=== PATIENT | female | born 1950 | race Caucasian/White ===

== ENCOUNTER → 2017-04-13 | Outpatient (CLI) | payer MEDICARE ==
--- NOTE | 2017-04-14 22:17 | Diagnostic Imaging Report ---
Bilateral screening mammogram 2D views with tomosynthesis The current study was also evaluated with a Computer Aided Detection (CAD) system. Indication: Screening. No current complaints stated on the questionnaire. COMPARISON: No prior studies are available for comparison. FINDINGS: The breasts are composed of scattered fibroglandular densities. Punctate calcifications are seen. No mass, architectural distortion or suspicious calcifications. IMPRESSION: No mammographic evidence of malignancy. Annual screening mammograms recommended. ACR BI-RADS Category 2: Benign findings. Result letter will be mailed to the patient. Note: At least 10% of breast cancer is not imaged by mammography. Dictated by: Dictated on workstation # [id number]
== END ==
LOC: RAD 10:59
PROVIDERS: ATTEND Internal Medicine
DX: Z12.31 Encounter for screening mammogram for malignant neoplasm of breast (principal)
CPT/HCPCS: 77067

== ENCOUNTER → 2018-09-16 | Outpatient (CLI) | payer MEDICARE ==
[~2018-09-16] MED LIST: ADAL40PE INJ; AMLO5TAB9 PO; ASPI-999 PO; ATOR20TA66 PO; METH2.5T PO
--- NOTE | 2018-09-16 18:59 | Diagnostic Imaging Report ---
INDICATION: Screening. At this time there are no current complaints. EXAMINATION: Bilateral digital screening mammogram with CAD. 3D tomographic images were obtained and reviewed. The current study was also evaluated with a Computer Aided Detection (CAD) system. COMPARISON: This study was compared with the prior exam of 04/13/2017. FINDINGS: There are scattered fibroglandular densities in both breasts which could obscure a lesion. Overall, there does not appear to have been any significant change when compared to the prior exam. No primary or secondary sign of malignancy is noted. In the interval since the prior exam, a loop recorder device has been inserted on the left. IMPRESSION: There is no radiographic evidence for malignancy. ACR BI-RADS Category 1: Negative. Result letter will be mailed to the patient. Note: At least 10% of breast cancer is not imaged by mammography. Dictated by: Dictated on workstation # [id number]
== END ==
LOC: RAD 07:06
PROVIDERS: ATTEND Internal Medicine
DX: Z12.31 Encounter for screening mammogram for malignant neoplasm of breast (principal)
CPT/HCPCS: 77067

== ENCOUNTER → 2019-12-19 | Outpatient (CLI) | payer MEDICARE ==
[~2019-12-19] MED LIST changes: +CATHETER FLUSH 10 ML SYR IV PRN; +REGADENOSON 0.4 MG/5 ML SYR (LEXISCAN) IV ONE
[2019-12-19 09:50] VITALS: BP 160/75
--- NOTE | 2019-12-19 15:53 | Cardiology Stress Test Report ---
Stress Test Report Date of Procedure/Referring: Date of Procedure: Dec 19, 2019 Anita Garcia Admitting Physician Viviana Perez DO Indications: Atrial tachycardia Baseline Heart Rate: 101 Baseline Blood Pressure: Blood Pressure Systolic: 160 Blood Pressure Diastolic: 75 Baseline Vitals Vital Signs Date Time Temp Pulse Resp B/P (MAP) Pulse Ox O2 Delivery O2 Flow Rate FiO2 12/19/19 09:50 105 18 160/75 (103) 99 Room Air Baseline EKG: Baseline EKG: sinus tachycardia Summary After explaining the procedure to the patient, she signed a consent and then brought to the stress nuclear laboratory. Patient received 0.4 mg Lexiscan for stress test, ECG, heart rate and blood pressure were monitored continuously. Resting and stress dose of radio tracer were injected, imaging was acquired and reviewed in short axis, horizontal long axis and vertical long axis views. TID: 1.01 SSS: 2 SDS: 2 EF: 61 1. Patient tolerated Lexiscan well 2. Baseline sinus tachycardia persisted during test 3. Breast attenuation with no significant ischemia or infarction on SPECT images 4. Normal LV size with EF 61 percent MUSA ALEXIS MD Dec 19, 2019 15:53
== END ==
LOC: CARD 07:26
PROVIDERS: ATTEND Physician Assistant
DX: I47.1 Supraventricular tachycardia (principal); I10 Essential (primary) hypertension; I63.9 Cerebral infarction, unspecified; E78.2 Mixed hyperlipidemia
CPT/HCPCS: 78452; 93017; A9502

== ENCOUNTER → 2020-03-16 | Outpatient (CLI) | payer MEDICARE ==
[~2020-03-16] MED LIST changes: +AMLO-250 PO; -AMLO5TAB9 PO; -CATHETER FLUSH 10 ML SYR IV PRN; -REGADENOSON 0.4 MG/5 ML SYR (LEXISCAN) IV ONE
--- NOTE | 2020-03-16 09:34 | Diagnostic Imaging Report ---
Digital mammogram. Bilateral screening This study was compared to the prior exam of 09/16/2018 and 04/13/2017. At this time there are no current complaints. The current study was also evaluated with a Computer Aided Detection (CAD) system. FINDINGS: The fibroglandular tissue in both breasts is dense. This does limit the sensitivity of this exam. Overall, there does not appear to have been any significant change when compared to the prior study. No primary or secondary sign of malignancy is noted. Loop recorder device overlying the left breast seen previously is again evident IMPRESSION: There is no radiographic evidence for malignancy. ACR BI-RADS Category 1: Negative. Result letter will be mailed to the patient. Note: At least 10% of breast cancer is not imaged by mammography. Dictated by: Dictated on workstation # [id number]
== END ==
LOC: RAD 07:16
PROVIDERS: ATTEND Internal Medicine
DX: Z12.31 Encounter for screening mammogram for malignant neoplasm of breast (principal)
CPT/HCPCS: 77063; 77067

== ENCOUNTER 2020-11-23 09:10 | Outpatient (CLI) | payer MEDICARE ==
[~2020-11-23] VITALS: Ht 160 cm; Wt 58.1 kg
[2020-11-23 09:00] VITALS: BP 122/54
[2020-11-23] MEDS ORDERED: EPINEPHrine INJECTION 1 MG/ML AMP IM PRN (09:45)
[2020-11-23] MEDS ORDERED: diphenhydrAMINE 50 MG/ML INJ (BENADRYL) IV PRN (09:45)
[2020-11-23] MEDS ORDERED: CASIRIVIMAB/IMDEVIMAB 1,200 MG in NS (IVPB) 250 ML IV ONE (09:45)
[2020-11-23 10:52] VITALS: BP 121/45
== END 2020-11-23 11:47 ==
LOC: INFUSION 09:10
PROVIDERS: ATTEND Internal Medicine
DX: Z23 Encounter for immunization (principal); U07.1 COVID-19

== ENCOUNTER → 2021-03-18 | Outpatient (CLI) | payer MEDICARE ==
--- NOTE | 2021-03-18 11:50 | Diagnostic Imaging Report ---
INDICATION: Routine screening. COMPARISON: 03/16/2020 and 09/16/2018. TECHNIQUE: 2D and 3D bilateral screening mammography was performed with CAD. FINDINGS: Scattered fibroglandular densities are identified bilaterally. A cardiac device overlies the medial left breast. The overall parenchymal pattern appears stable. No mass or malignant-appearing microcalcifications are seen. Occasional benign calcifications are noted. The axillae are unremarkable. IMPRESSION: No mammographic features suspicious for malignancy are identified. ACR BI-RADS Category 2: Benign findings. Result letter will be mailed to the patient. Note: At least 10% of breast cancer is not imaged by mammography. Dictated by: Dictated on workstation # [id number]
== END ==
LOC: RAD 07:35
PROVIDERS: ATTEND Internal Medicine
DX: Z12.31 Encounter for screening mammogram for malignant neoplasm of breast (principal)
CPT/HCPCS: 77063; 77067

== ENCOUNTER 2022-03-12 05:37 | Outpatient (CLI) | payer MEDICARE ==
[~2022-03-12] VITALS: Ht 160 cm; Wt 59.0 kg
[2022-03-13] MEDS ORDERED: MTP25TSR PO (08:36)
[2022-03-13] MEDS ORDERED: CYAN-41 PO (08:36)
[2022-03-13] MEDS ORDERED: FOLI1TAB33 PO (08:36)
[2022-03-13] MEDS ORDERED: MULT-593 PO (08:36)
== END 2022-03-13 08:39 | disposition home or self-care (01) ==
LOC: PREOP 05:37
PROVIDERS: ATTEND Surgery
DX: Z01.818 Encounter for other preprocedural examination (principal)

== ENCOUNTER 2022-03-25 10:00 | Day surgery (SDC) | payer MEDICARE ==
[~2022-03-25] VITALS: Ht 160 cm; Wt 59.0 kg
[~2022-03-25 10:00] MED LIST changes: +CYAN-41 PO; +FOLI1TAB33 PO; +MTP25TSR PO; +MULT-593 PO
[2022-03-25] MEDS ORDERED: LACTATED RINGERS 1,000 ML IV STA (10:03)
[2022-03-25 10:21] VITALS: BP 154/89
--- NOTE | 2022-03-25 13:11 | Progress Note-Pre Operative ---
Pre-Operative Progress Note Date of Available H&P: Feb 24, 2022 Date H&P Reviewed: Mar 25, 2022 Time H&P Reviewed: 13:11 History & Physical: H&P Reviewed, Patient Examed, No changes noted Pre-Operative Diagnosis: screening colonoscopy CARMEN BROWN DO Mar 25, 2022 13:11
[2022-03-25] MEDS ORDERED: PROPOFOL INJECTION 50 ML IV ONE (13:12)
[2022-03-25] MEDS ORDERED: MIDAZOLAM 2 MG/2 ML (VERSED) VIAL ONE (13:12)
[2022-03-25 13:40] VITALS: BP 99/56
--- NOTE | 2022-03-25 13:43 | Discharge Inst-Simple/Standard ---
Discharge Inst-Standard Patient Instructions/Follow Up Plan of Care/Instructions/FU: Follow up in [address] Emerson Activity as Tolerated: Yes Discharge Diet: Regular Diet CARMEN EMERSON DO Mar 25, 2022 13:43
[2022-03-25 13:45] VITALS: BP 102/57
[2022-03-25 13:50] VITALS: BP 105/57
[2022-03-25 14:05] VITALS: BP 128/88
[2022-03-25 14:12] VITALS: BP 128/88
--- NOTE | 2022-03-25 14:41 | Anesthesia-General Post-Op ---
MAC Patient Condition Mental Status/LOC: Same as Preop Cardiovascular: Satisfactory Nausea/Vomiting: Absent Respiratory: Satisfactory Pain: Controlled Complications: Absent Post Op Complications Complications None Follow Up Care/Instructions Patient Instructions None needed. Anesthesiology Discharge Order Discharge Order Patient is doing well, no complaints, stable vital signs, no apparent adverse anesthesia problems. No complications reported per nursing. ROLF PRINGLE CRNA Mar 25, 2022 14:41
--- NOTE | 2022-03-25 22:31 | OPERATIVE REPORT ---
DATE OF SERVICE: 03/25/2022 PREOPERATIVE DIAGNOSIS: Screening colonoscopy. POSTOPERATIVE DIAGNOSIS: Sigmoid polyp. PROCEDURE: Colonoscopy with snare polypectomy x1. SURGEON: Carmen Emerson DO. TYPE OF ANESTHESIA: Per SMALL ENGINE MECHANIC. ESTIMATED BLOOD LOSS: None. COMPLICATIONS: None. INDICATIONS: The patient is a 71-year-old female, needing colonoscopy. She understands risks and benefits of procedure and wishes to proceed. Consent was signed in chart. DESCRIPTION OF PROCEDURE: The patient was taken to endoscopy suite, placed in left lateral recumbent position. Timeout was performed. Digital rectal exam was performed. No palpable polyps, masses or ulcerations. Scope was inserted in the rectum and advanced all the way to the cecum with minimal difficulty. Prep was adequate. Scope was slowly retracted back. No polyps, masses, or ulcerations in the cecum, ascending, transverse, descending and sigmoid colon except for the distal sigmoid colon, polyp was present, which snare polypectomy was performed. Scope was then continually retracted back to the rectum where it was also retroflexed noting no other pathology, slowly returned to its normal position, slowly withdrawn until completely removed. The patient tolerated the procedure well with no complications. She was taken to recovery room in stable condition. RECOMMENDATIONS: The patient will have repeat colonoscopy in 5 years and any issues before that be seen at that time. Job ID: [id number] DocumentID: [id number] Dictated Date: 03/25/2022 13:45:13 Fence Repairman Date: 03/25/2022 22:28:00 Dictated By: CARMEN EMERSON DO
== END 2022-03-25 14:12 | disposition home or self-care (01) ==
LOC: ENDO 10:00
PROVIDERS: ATTEND Surgery
DX: Z12.11 Encounter for screening for malignant neoplasm of colon (principal); D12.5 Benign neoplasm of sigmoid colon

== ENCOUNTER → 2022-07-29 | Outpatient (CLI) | payer MEDICARE ==
--- NOTE | 2022-07-29 15:01 | Diagnostic Imaging Report ---
INDICATION: Routine screening. COMPARISON: 03/18/2021 and 03/16/2020. TECHNIQUE: 2D and 3D bilateral screening mammography was performed with CAD. FINDINGS: Scattered fibroglandular densities are identified bilaterally. A cardiac loop recorder overlies the medial left breast soft tissues. No mass or malignant-appearing microcalcifications are seen. There are occasional benign calcifications. The axillae are unremarkable. IMPRESSION: No mammographic features suspicious for malignancy are identified. ACR BI-RADS Category 2: Benign findings. Result letter will be mailed to the patient. Note: At least 10% of breast cancer is not imaged by mammography. Dictated by: Dictated on workstation # [id number]
== END ==
LOC: RAD 07:04
PROVIDERS: ATTEND Internal Medicine
DX: Z12.31 Encounter for screening mammogram for malignant neoplasm of breast (principal)
CPT/HCPCS: 77063; 77067

== ENCOUNTER → 2022-10-10 | Outpatient (CLI) | payer MEDICARE | LOC: CARD 10:05 | PROVIDERS: ATTEND Internal Medicine Cardiovascular Disease | DX: I11.9 Hypertensive heart disease without heart failure (principal); I25.10 Atherosclerotic heart disease of native coronary artery without angina pectoris | CPT/HCPCS: 93306 ==